=== PATIENT | male | born 1945 | race African-American/Black ===

== ENCOUNTER 2017-12-28 13:05 | Outpatient (CLI) | payer MEDICARE, MEDICAID ==
[2017-12-28 14:03] LABS: APPEARANCE,URINE CLEAR; BILIRUBIN, URINE NEGATIVE (NEGATIVE); COLOR,URINE PALE YELLOW; GLUCOSE, URINE (UA) NEGATIVE (NEGATIVE); KETONES,URINE NEGATIVE (NEGATIVE); LEUKOCYTE ESTERASE ,URINE NEGATIVE (NEGATIVE); NITRITE,URINE NEGATIVE (NEGATIVE); PH,URINE 5 (4.5-8.0); PROTEIN,URINE 1+ (NEGATIVE); UROBILINOGEN,URINE NORMAL MG/DL (0.0-1.0)
[2017-12-28 14:11] LABS: BASOPHILS % (AUTO) 1.4 % (0.0-2.0); EOSINOPHILS % (AUTO) 1.3 % (0.0-3.0); HEMATOCRIT 44.1 % (42.0-52.0); HEMOGLOBIN 14.3 G/DL (14.2-18.0); MEAN CORPUSCULAR VOLUME 86 FL (80-99); MONOCYTES % (AUTO) 5.7 % (1.0-10.0); NEUTROPHILS % (AUTO) 53.6 % (45.0-75.0); PLATELET COUNT 226 K/UL (150-450); RED CELL DISTRIBUTION WIDTH 13.6 % (11.6-14.8); WHITE BLOOD COUNT 6.1 K/UL (4.8-10.8)
[2017-12-28 14:56] LABS: ALANINE AMINOTRANSFERASE 17 U/L (12-78); ALBUMIN/GLOBULIN RATIO 1.1 (1.0-2.7); ALKALINE PHOSPHATASE 99 U/L (46-116); ANION GAP 10 mmol/L (5-15); ASPARTATE AMINO TRANSFERASE 19 U/L (15-37); BILIRUBIN,TOTAL 0.4 MG/DL (0.2-1.0); BLOOD UREA NITROGEN 22 mg/dL (7-18); CALCIUM 10.1 MG/DL (8.5-10.1); CARBON DIOXIDE 29 MMOL/L (21-32); CHLORIDE 105 MMOL/L (98-107); CHOLESTEROL 128 MG/DL (< 200); CREATININE 0.9 MG/DL (0.55-1.30); HDL CHOLESTEROL 37 MG/DL (40-60); POTASSIUM 4.5 MMOL/L (3.5-5.1); SODIUM 143 MMOL/L (136-145); TRIGLYCERIDES 81 MG/DL (30-150)
--- NOTE | 2017-12-28 15:51 | Diagnostic Imaging Report ---
Indication: Back pain Comparison: None Findings: 3 views of the sacrum and coccyx were obtained. Some degenerative disease noted in the sacroiliac joints bilaterally with subchondral sclerosis and osteophytes. Enthesophyte formation at the lower aspect of the ischial tuberosity noted. Degenerative changes of the lower lumbar spine noted. IMPRESSION: Degenerative arthritis. No obvious acute injury.
--- NOTE | 2017-12-28 15:52 | Diagnostic Imaging Report ---
Indication: Pain 3 views of the left knee were obtained. Findings: There is joint space narrowing with marginal osteophyte formation and subchondral sclerosis. No obvious fracture seen. No malalignment identified. IMPRESSION: Moderate osteoarthritis
--- NOTE | 2017-12-28 15:57 | Diagnostic Imaging Report ---
Indication: Pain 3 views of the right knee were obtained. Findings: On the frontal projection in the area of the lateral tibial spine there is a vertically oriented lucency suspicious for fracture. Acuity is indeterminate. Correlate clinically. There is no joint effusion. Moderate arthrosis demonstrated with tricompartmental osteophyte formation and some joint space narrowing. IMPRESSION: Apparent fracture in the area of the lateral tibial spine. Correlate clinically. There is no history of recent antecedent trauma, the injury is presumed to be old.
--- NOTE | 2017-12-28 15:59 | Diagnostic Imaging Report ---
Indication: Cough Comparison: None 2 views of the chest obtained. Reticular markings are prominent within the lungs bilaterally. The heart is enlarged. Aorta is mildly ectatic. Bones are unremarkable. IMPRESSION: Interstitial prominence within the lungs nonspecific. Mild degree of interstitial edema not excluded
== END 2017-12-28 15:05 | disposition home or self-care (01) ==
LOC: LAB 13:05
DX: M54.9 Dorsalgia, unspecified (principal); M47.9 Spondylosis, unspecified; I51.7 Cardiomegaly; M17.0 Bilateral primary osteoarthritis of knee
CPT/HCPCS: 36415; 71046; 72220; 80053; 80061; 81001; 82270; 84153; 84443; 85025